=== PATIENT | female | born 1950 | race Caucasian/White ===

== ENCOUNTER 2022-01-11 15:08 | Emergency (ER) | payer MEDICARE, SELFPAY ==
[2022-01-11 16:07] VITALS: BP 130/71; PULSE 69; RESP 18; TEMP 36.6; O2SAT 97; BMI 17.6
[2022-01-11 16:49] LABS: D Dimer 221 ng/ml (<500)
--- NOTE | 2022-01-11 16:54 | DI.US.S_ITS ---
PROCEDURE: US PERIPH VENOUS LOW EXTREM LT INDICATIONS: c/f DVT left calf with pain TECHNIQUE: Real-time imaging, as well as color and pulse Doppler interrogation, were performed of the lower extremity deep veins from the inguinal ligament to the popliteal fossa. COMPARISON: None. FINDINGS: The common femoral, femoral and popliteal veins are normally compressible, and free of intraluminal thrombus. Color and pulse Doppler demonstrate normal phasic intraluminal flow. There is normal augmentation response to distal compression maneuver. Additional, dedicated ultrasound scanning is performed at the area of calf pain. No focal ultrasound abnormalities are seen within this region. IMPRESSION: Negative for deep venous thrombosis. Dictated by: Joe Miller M.D. on 01/11/2022 at 16:33 Approved by: Joe Miller M.D. on 01/11/2022 at 16:33
[2022-01-11] MEDS: KETOROLAC 10 MG TABLET PO (17:03)
--- NOTE | 2022-01-11 17:35 | ED_ITS ---
HPI - Extremity Problem General Chief complaint: Extremity Problem,Nontraumatic Stated complaint: Pain in left calf, RO blood clot Time Seen by Provider: 01/11/22 16:49 Source: patient Mode of arrival: Ambulatory History of Present Illness HPI Narrative: This is a 71-year-old female without any significant medical history who does take estrogen and presents to the emergency department complaining of left calf tenderness and pain with ambulation over the last 2 days. She states that she was on a long car ride approximately 6 hours, her pain started after this and has been ongoing without rest. She denies any wound, states that her lower extremity is swollen near her ankles. States that she is active at baseline but has had pain in her left calf so she has not been walking on it much. She has not taken any pain medication yet, states that she is concerned about a blood clot she denies any history of blood clots, denies having hypertension, hyperlipidemia, or any risk factors for strokes or heart attacks. Related Data Home Medications Medication Instructions Recorded Confirmed [MARIJUANA] ##0 09/24/16 Allergies Allergy/AdvReac Type Severity Reaction Status Date / Time fluconazole [FLUCONAZOLE] Allergy Unknown Verified 01/11/22 16:10 Review of Systems Review of Systems Narrative: Review of systems is negative for acute abnormalities unless otherwise noted in HPI Patient History Social History Smoking Status: Never smoker Smoking Status: Never smoker alcohol intake frequency: 0-2 drinks per day Substance Use Type: does not use Exam Narrative Exam Narrative: Reviewed vitals signs and nursing notes. General: cooperative, comfortable, in no acute distress, well groomed HEENT: symmetrical facial expressions, moist mucous membranes Cardiovascular: regular rate and rhythm, no peripheral edema, warm extremities Respiratory: normal effort, able to speak in complete sentences, without wheez ing, stridor, or abnormal breath sounds. No retractions or tachypnea. GI: abdomen soft, nontender to palpation, nondistended, without masses, rebound tenderness or exquisite tenderness with exam. MSK: moves all extremities, neurovascularly intact, no weakness, normal tone Skin: brisk capillary refill, without pallor or erythema Neuro: normal speech and cognition, A&O x3, ambulatory, clear speech Psych: mental status is grossly normal, congruent mood, normal affect, pleasant and cooperative Initial Vital Signs Initial Vital Signs: Vital Signs Temperature 97.9 F 01/11/22 16:07 Pulse Rate 69 01/11/22 16:07 Respiratory Rate 18 01/11/22 16:07 Blood Pressure 130/71 01/11/22 16:07 Pulse Oximetry 97 01/11/22 16:07 Oxygen Delivery Method 01/11/22 16:07 Course Orders Ordered: Discontinued Medications Ketorolac Tromethamine (Ketorolac 10 Mg Tablet) 10 mg PO NOW ONE Stop: 01/11/22 16:56 Last Admin: 01/11/22 17:03 Dose: 10 mg Documented By: AT Vital Signs Vital signs: Vital Signs - 8 hr 01/11/22 16:07 Temperature 97.9 F Pulse Rate 69 Respiratory Rate 18 Blood Pressure 130/71 Pulse Oximetry 97 Oxygen Delivery Method Room Air MDM - Extremity (Nontraumatic) Lab Data Labs: Lab Results 01/11/22 Range/Units 16:29 D-Dimer 221 (<500) ng/ml Imaging Data US - DVT: Radiologist's Impression: PROCEDURE: US PERIPH VENOUS LOW EXTREM LT INDICATIONS: c/f DVT left calf with pain TECHNIQUE: Real-time imaging, as well as color and pulse Doppler interrogation, were performed of the lower extremity deep veins from the inguinal ligament to the popliteal fossa. COMPARISON: None. FINDINGS: The common femoral, femoral and popliteal veins are normally compressible, and free of intraluminal thrombus. Color and pulse Doppler demonstrate normal phasic intraluminal flow. There is normal augmentation response to distal compression maneuver. Additional, dedicated ultrasound scanning is performed at the area of calf pain. No focal ultrasound abnormalities are seen within this region. IMPRESSION: Negative for deep venous thrombosis. Dictated by: Joe Miller M.D. on 01/11/2022 at 16:33 Approved by: Joe Miller M.D. on 01/11/2022 at 16:33 [facility] Narrative Medical decision making narrative: This is a pleasant 71-year-old female without any medical history who presents to the emergency department concerned about a blood clot in his left lower extremity. Her D-dimer was 221 which is negative, her left lower extremity was negative for deep vein thrombosis. Discussed with her symptoms of gastrocnemius strain and tear, encouraged to use supportive therapies like anti inflammatories, Tylenol, heel lifts, heat, ice and to rest. Patient is appropriate and amenable to discharge home. Vital signs are stable on repeat examination is unremarkable. Patient has been informed of results. Patient has been given strict return to ER precautions for any new or worsening symptoms. Patient understands to follow up closely with outpatient providers as instructed. Patient understands plan and agrees to discharge home. All questions and concerns answered at this time. Discharge Plan Departure Patient Disposition: Home Clinical Impression: Pain of left calf Instructions: Calf Muscle Strain Activity Restrictions/Additional Instructions: *You have been diagnosed with no blood clot in your left lower extremity, no elevation of your D-dimer which would indicate a likely clot somewhere else in your body. This is great news, treat this with warmth, ice if it is helpful, topical anti-inflammatories like Voltaren gel, light massage and avoid excessive stretching. Try to gently allow this to get back to normal. I hope that this is peace of mind, and I hope that it feels better soon. Please return for any worsening of your symptoms. *What to do: *Please continue to take your regular medications as directed. [ ] New medication prescriptions sent to your pharmacy: [ ] [ ] New medication written as a paper prescription [ x] No new medications given *Please follow up with your primary care provider in 2-3 days, call for an appointment. Let them know you were seen in the Emergency Department and that we asked that you be seen for follow-up. We will electronically transmit a record of today's note if your PCP is in our system *If you do not have a primary care provider please contact [phone] to establish care with one of the [facility] primary care providers. *Return to Emergency Department if you should have any new, worsening, or concerning symptoms, such as [fever greater than 101F, chills, worsening pain, persistent vomiting or other bothersome symptoms]. Prescriptions: No Action [MARIJUANA] Qty: 0 Referrals: Sherice Prasad MD [Primary Care Provider] - Visit Report Forms: Patient Portal/API
== END 2022-01-11 18:00 | disposition home or self-care (01) ==
PROVIDERS: Emergency Medicine; Emergency Provider Nurse Practitioner Critical Care Medicine; PCP Family Medicine
DX: M79.605 Pain in left leg (principal)
CPT/HCPCS: 36415; 85379; 93971; 99284